=== PATIENT | female | born 1960 ===

== ENCOUNTER 2017-11-11 20:09 | Emergency (ER) | payer OTHER ==
[~2017-11-11] VITALS: Ht 165.1 cm; Wt 54.4 kg
[2017-11-11 22:50] VITALS: BP 126/89
== END 2017-11-11 22:00 | disposition home or self-care (01) ==
LOC: ER 20:09
DX: K59.00 Constipation, unspecified (principal); E11.9 Type 2 diabetes mellitus without complications; Z88.1 Allergy status to other antibiotic agents